=== PATIENT | male | born 1955 | race Caucasian/White ===

== ENCOUNTER 2024-04-08 15:29 | Emergency (ER) | payer OTHER ==
[~2024-04-08] VITALS: Ht 177.8 cm; Wt 86.2 kg
[2024-04-08] MEDS: ketOROlac 15MG/ML VIAL (15MG/ML) IM ONE (18:37)
[2024-04-08 19:23] VITALS: BP 148/90; RESP 18
[2024-04-08] MEDS ORDERED: NAPR-1192 PO (19:23)
[2024-04-08] MEDS ORDERED: METH-811 PO (19:23)
[2024-04-08] MEDS: methoCARBamol 500 MG TABLET PO STA (19:39)
[2024-04-08 19:49] VITALS: PULSE 78; TEMP 98.4; O2SAT 97
== END 2024-04-08 19:50 | disposition home or self-care (01) ==
LOC: EDH 15:29
DX: M54.12 Radiculopathy, cervical region (principal); M41.9 Scoliosis, unspecified; Z90.49 Acquired absence of other specified parts of digestive tract
CPT/HCPCS: 99285; 72125; 72072; 96372; J1885

== ENCOUNTER 2024-04-15 18:46 | Emergency (ER) | payer OTHER ==
[~2024-04-15] VITALS: Ht 177.8 cm; Wt 87.1 kg
[~2024-04-15 18:46] MED LIST: METH-811 PO; NAPR-1192 PO
[2024-04-15 19:07] LABS: BASOPHILS # (AUTO) 0.09 K/uL (0.00-0.20); BASOPHILS % (AUTO) 0.5 % (0.0-5.0); EOSINOPHILS # (AUTO) 0.06 K/uL (0.00-0.70); EOSINOPHILS % (AUTO) 0.3 % (0.0-8.0); HEMATOCRIT 47.8 % (42-54); IMMATURE GRANULOCYTE ABSOLUTE 0.11 K/uL (0-1); LYMPHOCYTES # (AUTO) 2.7 K/uL (1.0-4.8); LYMPHOCYTES % (AUTO) 14.7 % (21.0-51.0); MEAN CORPUSCULAR HGB CONC 33.7 g/dL (32.0-36.0); MONOCYTES # (AUTO) 1.6 K/uL (0.1-1.0); MONOCYTES % (AUTO) 8.4 % (3.0-13.0); NEUTROPHILS # (AUTO) 13.9 K/uL (1.8-7.7); NEUTROPHILS % (AUTO) 75.5 % (40.0-77.0); PLATELET COUNT (AUTO) 318 K/uL (130-400); RED BLOOD CELL COUNT(AUTO) 5.37 MIL/uL (4.50-6.20); RED CELL DISTRIBUTION WIDTH 14.1 % (11.0-15.5); WHITE BLOOD COUNT (AUTO) 18.4 K/uL (4.8-10.8)
[2024-04-15] MEDS: ASPIRIN 325MG TAB PO ONE (19:28)
[2024-04-15] MEDS: ondanSETRON 4MG INJ IVP ONE (19:28)
[2024-04-15] MEDS: morPHINE 2 MG SYG IVP ONE (19:28)
[2024-04-15 19:37] LABS: CREATININE 1.6 mg/dL (0.5-1.3)
[2024-04-15 19:50] LABS: POTASSIUM 4.3 mmol/L (3.5-5.1)
[2024-04-15 20:42] VITALS: BP 134/68; PULSE 88; RESP 20; TEMP 98.6; O2SAT 92
[2024-04-15 20:44] LABS: APPEARANCE,URINE CLEAR (CLEAR); BILIRUBIN,URINE NEGATIVE (NEGATIVE); COLOR,URINE LIGHT-YELLOW (YELLOW); GLUCOSE, URINE (UA) NEGATIVE (NEGATIVE); KETONES,URINE NEGATIVE (NEGATIVE); LEUKOCYTE ESTERASE ,URINE 25 Leu/uL (NEGATIVE); NITRATE,URINE NEGATIVE (NEGATIVE); OCCULT BLOOD,URINE NEGATIVE (NEGATIVE); PH,URINE 6.5 (5.0-8.0); PROTEIN,URINE NEGATIVE (NEGATIVE); UROBILINOGEN,URINE 0.2 mg/dL (0.2-1.0)
[2024-04-15 20:53] LABS: ADD UA MICROSCOPIC YES
[2024-04-15 20:54] LABS: MUCUS,URINE RARE LPF (None Seen); SQUAMOUS EPITHELIAL CELL,UR RARE /HPF (0-2)
[2024-04-15] MEDS ORDERED: ACET-2079 PO (21:31)
== END 2024-04-15 21:41 | disposition home or self-care (01) ==
LOC: EDH 18:46
DX: R07.89 Other chest pain (principal); N18.9 Chronic kidney disease, unspecified; D72.829 Elevated white blood cell count, unspecified; F17.200 Nicotine dependence, unspecified, uncomplicated; Z79.51 Long term (current) use of inhaled steroids; Z79.899 Other long term (current) drug therapy; Z90.49 Acquired absence of other specified parts of digestive tract
CPT/HCPCS: 99285; 96374; 71045; 96375; 84484 ×2; 80048; 85025; 87040; 83605; 81001; 36415; 93005 ×2; J2270; J2405